=== PATIENT | male | born 1985 | race African-American/Black ===

== ENCOUNTER 2024-06-17 10:10 | Inpatient (IN) | payer BC ==
[~2024-06-17] VITALS: Ht 175.3 cm; Wt 76.2 kg
[2024-06-17 10:46] VITALS: O2SAT 99
[2024-06-17 11:27] LABS: CLARITY URINE CLEAR (CLEAR); COLOR URINE ORANGE (YELLOW); GLUCOSE URINE NEGATIVE (NEGATIVE); KETONES URINE TRACE (NEGATIVE); LEUKOCYTE ESTERASE URINE TRACE (NEGATIVE); NITRITE URINE NEGATIVE (NEGATIVE); OCCULT BLOOD URINE 3+ (NEGATIVE); PROTEIN URINE 1+ (NEGATIVE); SPECIFIC GRAVITY URINE 1.015 (1.005-1.030); UROBILINOGEN URINE 0.2 E.U./dL (0.2-1.0)
[2024-06-17 11:59] LABS: BASOPHILS % 0.2 % (0.0-2.0); HEMATOCRIT. 46.8 % (42.0-52.0); LYMPHOCYTES % 8.2 % (20.0-50.0); MEAN CORPUSCULAR HEMOGLOBIN 27.9 pg (28.0-32.0); MEAN CORPUSCULAR HGB CONC 31.9 g/dL (31.0-37.0); MEAN CORPUSCULAR VOLUME 87.4 fL (80.0-94.0); MEAN PLATELET VOLUME 7.8 fl (7.4-10.4); MONOCYTES % 4.6 % (2.0-8.0); PLATELET 371 x1000/uL (130-400); RED BLOOD CELL COUNT 5.35 mill/uL (4.7-6.1); RED CELL DISTRIBUTION WIDTH 14.9 % (11.6-14.6)
[2024-06-17 12:13] LABS: CHLORIDE 107 mEq/L (98-107); POTASSIUM 4.5 mEq/L (3.5-5.1); SODIUM 138 mEq/L (136-145)
[2024-06-17 12:14] LABS: CARBON DIOXIDE 25 mEq/L (21-32)
[2024-06-17 12:15] LABS: RBC URINE TNTC /hpf (0-2); SQUAMOUS EPITHELIAL CELL URINE RARE /lpf (RARE/1+)
[2024-06-17 12:15] LABS: CALCIUM 10.1 mg/dL (8.7-10.4)
[2024-06-17 12:16] LABS: BACTERIA URINE TRACE
[2024-06-17 12:17] LABS: MUCUS URINE TRACE /lpf (NONE/TRACE)
[2024-06-17 12:18] LABS: WBC URINE 0-2 /hpf (0-2)
[2024-06-17] MEDS ORDERED: KETOROLAC 30MG/ML VIAL IM STA (12:18)
[2024-06-17 12:19] LABS: CREATININE 0.8 mg/dL (0.6-1.3); GLUCOSE 98 mg/dL (70-105); UREA NITROGEN BLOOD 10 mg/dL (9-23)
[2024-06-17] MEDS ORDERED: GUAIFENESIN 200MG/10ML SUGAR FREE UDC PO PRN (14:00)
[2024-06-17] MEDS ORDERED: CLONIDINE 0.1MG TABLET PO PRN (14:00)
[2024-06-17] MEDS ORDERED: ONDANSETRON HCL 4MG/2ML INJ IV PRN (14:00)
[2024-06-17] MEDS ORDERED: LORAZEPAM 0.5MG TABLET PO PRN (14:00)
[2024-06-17] MEDS ORDERED: IPRATROPIUM/ALBUTEROL 0.5-3(2.5)MG/3ML NEB HHN PRN (14:00)
[2024-06-17] MEDS ORDERED: ACETAMINOPHEN 325MG TABLET PO PRN (14:00)
[2024-06-17] MEDS ORDERED: DOCUSATE SODIUM 100MG CAPSULE PO PRN (14:15)
[2024-06-17] MEDS: SODIUM CHLORIDE 0.9% 1,000 ML IV SCH (14:26)
[2024-06-17] MEDS ORDERED: NALOXONE HCL 0.4MG/ML VIAL IV PRN (14:30)
[2024-06-17] MEDS: MORPHINE SULFATE 2 MG/ML INJ (NOT FOR IM USE) IV PRN (14:33)
[2024-06-17] MEDS: KETOROLAC 30MG/ML VIAL IM NR (14:41)
[2024-06-17] MEDS: LEVOFLOXACIN 500MG PREMIX 100 ML IV NR (15:20)
[2024-06-17 16:00] VITALS: BP 124/73; PULSE 92; RESP 18; TEMP 36.5; O2SAT 97
[2024-06-17 16:12] LABS: CREATINE KINASE 66 IU/L (46-171)
[2024-06-17 17:08] VITALS: BP 124/73; PULSE 92; RESP 18; TEMP 36.5
[2024-06-17] MEDS: ACETAMINOPHEN 325MG TABLET PO PRN (18:51)
[2024-06-17 20:00] VITALS: BP 120/76; PULSE 96; RESP 17; TEMP 36.3; O2SAT 98
[2024-06-18] VITALS: BP 102/58; PULSE 97; RESP 17; TEMP 36.4; O2SAT 97
[2024-06-18 00:14] LABS: CREATINE KINASE 71 IU/L (46-171)
[2024-06-18 04:00] VITALS: BP 111/69; PULSE 98; RESP 17; TEMP 36.9; O2SAT 98
[2024-06-18 11:21] LABS: BASOPHILS % 0.7 % (0.0-2.0); MEAN CORPUSCULAR VOLUME 87.5 fL (80.0-94.0)
[2024-06-18 11:25] LABS: HEMATOCRIT. 43.3 % (42.0-52.0); HEMOGLOBIN. 14.2 g/dL (14.0-18.0); LYMPHOCYTES % 28.7 % (20.0-50.0); MEAN CORPUSCULAR HEMOGLOBIN 28.7 pg (28.0-32.0); MEAN CORPUSCULAR HGB CONC 32.8 g/dL (31.0-37.0); MEAN PLATELET VOLUME 8.3 fl (7.4-10.4); MONOCYTES % 7.2 % (2.0-8.0); NEUTROPHILS % 60.4 % (40.0-76.0); PLATELET 327 x1000/uL (130-400); RED BLOOD CELL COUNT 4.95 mill/uL (4.7-6.1); RED CELL DISTRIBUTION WIDTH 15.3 % (11.6-14.6); WHITE BLOOD COUNT 7.8 x1000/uL (4.5-11.0)
[2024-06-18 11:26] LABS: CHLORIDE 108 mEq/L (98-107); POTASSIUM 3.9 mEq/L (3.5-5.1); SODIUM 142 mEq/L (136-145)
[2024-06-18 11:27] LABS: CARBON DIOXIDE 24 mEq/L (21-32)
[2024-06-18 11:28] LABS: CALCIUM 9.6 mg/dL (8.7-10.4)
[2024-06-18 11:32] LABS: CREATININE 0.8 mg/dL (0.6-1.3); GLUCOSE 81 mg/dL (70-105); UREA NITROGEN BLOOD 12 mg/dL (9-23)
[2024-06-18] MEDS ORDERED: ESCI-7 PO (14:07)
[2024-06-18] MEDS ORDERED: MEDICATION NOT ON FORMULARY EA (Escitalopram Oxalate 1 TAB) PO SCH (14:15)
[2024-06-18] MEDS: CITALOPRAM HYDROBROMIDE 10MG TABLET PO SCH (14:34)
[2024-06-18] MEDS: TRAMADOL 50MG TABLET PO SCH (14:35)
[2024-06-18] MEDS: TAMSULOSIN HCL 0.4MG SR CAPSULE PO SCH (14:35)
[2024-06-18 16:00] VITALS: BP 115/67; PULSE 87; RESP 16; TEMP 36.6; O2SAT 98
[2024-06-18 20:00] VITALS: BP 111/71; PULSE 77; RESP 19; TEMP 36.5; O2SAT 96
[2024-06-18] MEDS: FAMOTIDINE 20MG TABLET PO SCH (22:57)
[2024-06-19] VITALS: BP 105/58; PULSE 71; RESP 17; TEMP 35.7; O2SAT 96
[2024-06-19 04:00] VITALS: BP 124/73; PULSE 92; RESP 18; TEMP 36.5; O2SAT 97
[2024-06-19 08:00] VITALS: BP 110/77; PULSE 70; RESP 18; TEMP 36.5; O2SAT 99
[2024-06-19 12:00] VITALS: BP 114/67; PULSE 70; RESP 16; TEMP 35.7; O2SAT 99
[2024-06-19 16:00] VITALS: BP 116/65; PULSE 75; RESP 18; TEMP 36.5; O2SAT 98
[2024-06-19 20:00] VITALS: BP 102/67; PULSE 72; RESP 18; TEMP 36.7; O2SAT 100
[2024-06-20] VITALS: BP 110/65; PULSE 70; RESP 19; TEMP 33.8; O2SAT 100
[2024-06-20 04:00] VITALS: BP 112/65; PULSE 86; RESP 20; TEMP 36.3; O2SAT 98
[2024-06-20 05:33] VITALS: BP 112/65; RESP 18
[2024-06-20 07:03] LABS: HEMATOCRIT 42.9 % (42.0-52.0); MEAN CORPUSCULAR HEMOGLOBIN 28.5 pg (28.0-32.0); MEAN CORPUSCULAR HGB CONC 32.6 g/dL (31.0-37.0); MEAN CORPUSCULAR VOLUME 87.4 fL (80.0-94.0); PLATELET 342 x1000/uL (130-400); RED CELL DISTRIBUTION WIDTH 14.6 % (11.6-14.6); WHITE BLOOD COUNT 7.4 x1000/uL (4.5-11.0)
[2024-06-20 07:13] LABS: CARBON DIOXIDE 26 mEq/L (21-32); CHLORIDE 107 mEq/L (98-107); POTASSIUM 4.1 mEq/L (3.5-5.1); SODIUM 142 mEq/L (136-145)
[2024-06-20 07:18] LABS: CREATININE 0.7 mg/dL (0.6-1.3)
[2024-06-20 07:19] LABS: GLUCOSE 97 mg/dL (70-105); UREA NITROGEN BLOOD < 5 mg/dL (9-23)
[2024-06-20 08:32] VITALS: PULSE 60
== END 2024-06-20 09:50 | disposition home or self-care (01) | DRG 694 ==
LOC: ER 10:10 → EDBEDREQTM 13:11 → EDBEDREQ 13:11 → 5WST 16:45 → 7EST 06-19 19:22
PROVIDERS: ADMIT Hospitalist; ATTEND Hospitalist
DX: N13.2 Hydronephrosis with renal and ureteral calculous obstruction (principal); N45.1 Epididymitis; D72.829 Elevated white blood cell count, unspecified; F17.290 Nicotine dependence, other tobacco product, uncomplicated; F32.A Depression, unspecified; F41.9 Anxiety disorder, unspecified; Z79.899 Other long term (current) drug therapy; Z90.49 Acquired absence of other specified parts of digestive tract; Z93.3 Colostomy status
CPT/HCPCS: 36415; 74176; 76870; 80048; 81003; 82550; 83605; 84145; 85025; 85027; 93976; 99285; A4606; J1885; J1956; J2270; J2405

== ENCOUNTER 2024-06-24 10:40 | Inpatient (IN) | payer BC ==
[~2024-06-24] VITALS: Ht 177.8 cm; Wt 79.8 kg
[~2024-06-24 10:40] MED LIST: ESCI-7 PO
[2024-06-24] MEDS: ONDANSETRON HCL 4MG/2ML INJ IV STA (10:52)
[2024-06-24] MEDS: MORPHINE SULFATE 4 MG/ML INJ (FOR IV/IM USE) IV STA (10:52)
[2024-06-24] MEDS: SODIUM CHLORIDE 0.9% 1,000 ML IV ONE (11:00)
[2024-06-24 11:29] LABS: BASOPHILS % 0.3 % (0.0-2.0); EOSINOPHILS % 0.1 % (0.0-5.0); HEMATOCRIT. 47.2 % (42.0-52.0); HEMOGLOBIN. 15.3 g/dL (14.0-18.0); LYMPHOCYTES % 7.6 % (20.0-50.0); MEAN CORPUSCULAR HGB CONC 32.4 g/dL (31.0-37.0); MEAN CORPUSCULAR VOLUME 86.3 fL (80.0-94.0); MEAN PLATELET VOLUME 8.1 fl (7.4-10.4); MONOCYTES % 5.8 % (2.0-8.0); NEUTROPHILS % 86.2 % (40.0-76.0); PLATELET 339 x1000/uL (130-400); RED BLOOD CELL COUNT 5.47 mill/uL (4.7-6.1); RED CELL DISTRIBUTION WIDTH 15.2 % (11.6-14.6); WHITE BLOOD COUNT 15.9 x1000/uL (4.5-11.0)
[2024-06-24 11:36] LABS: CHLORIDE 106 mEq/L (98-107); POTASSIUM 3.7 mEq/L (3.5-5.1); SODIUM 138 mEq/L (136-145)
[2024-06-24 11:37] LABS: CALCIUM 10.8 mg/dL (8.7-10.4); CARBON DIOXIDE 22 mEq/L (21-32)
[2024-06-24 11:41] LABS: INR 0.9
[2024-06-24 11:42] LABS: GLUCOSE 98 mg/dL (70-105); UREA NITROGEN BLOOD 13 mg/dL (9-23)
[2024-06-24 11:44] LABS: ALANINE AMINOTRANSFERASE 26 IU/L (10-49); ALBUMIN 4.8 g/dL (3.2-4.8); ASPARTATE AMINOTRANSFERASE 25 IU/L (<34); BILIRUBIN DIRECT 0.4 mg/dL (<=3.0); BILIRUBIN TOTAL 1.1 mg/dL (0.1-1.0)
[2024-06-24 11:45] LABS: PROTEIN TOTAL 7.8 g/dL (6.0-8.3)
[2024-06-24 11:54] LABS: CREATININE 1.3 mg/dL (0.6-1.3)
[2024-06-24] MEDS: MORPHINE SULFATE 4 MG/ML INJ (FOR IV/IM USE) IV ONE (12:54)
[2024-06-24 15:51] VITALS: BP 125/83; PULSE 58; RESP 18; TEMP 36.9
[2024-06-24 16:00] VITALS: BP 125/83; PULSE 60; RESP 18; TEMP 36.7; O2SAT 100
[2024-06-24] MEDS ORDERED: DIPHENHYDRAMINE 50MG/ML VIAL IV PRN (16:15)
[2024-06-24] MEDS ORDERED: ACETAMINOPHEN 325MG TABLET PO PRN (16:15)
[2024-06-24] MEDS ORDERED: CLONIDINE 0.1MG TABLET PO PRN (16:15)
[2024-06-24] MEDS ORDERED: NALOXONE HCL 0.4MG/ML VIAL IV PRN (16:30)
[2024-06-24] MEDS ORDERED: IBUPROFEN 600MG TABLET PO SCH (16:30)
[2024-06-24] MEDS: ONDANSETRON HCL 4MG/2ML INJ IV PRN (16:45)
[2024-06-24] MEDS: TAMSULOSIN HCL 0.4MG SR CAPSULE PO SCH (16:46)
[2024-06-24 20:00] VITALS: BP 121/75; RESP 18; TEMP 36.7; O2SAT 96
[2024-06-24] MEDS: SODIUM CHLORIDE 0.9% 1,000 ML IV SCH (20:40)
[2024-06-24] MEDS: FAMOTIDINE 20MG TABLET PO SCH (20:40)
[2024-06-24] MEDS: MORPHINE SULFATE 4 MG/ML INJ (FOR IV/IM USE) IV PRN (20:41)
[2024-06-24] MEDS: ACETAMINOPHEN 325MG TABLET PO PRN (21:44)
[2024-06-24] MEDS: SODIUM CHLORIDE 0.9% 3ML FLUSH IVF SCH (21:45)
[2024-06-25] MEDS: KETOROLAC 30MG/ML VIAL IV PRN (00:05)
[2024-06-25 04:00] VITALS: BP 103/58; PULSE 87; RESP 18; TEMP 36.4; O2SAT 95
[2024-06-25 08:00] VITALS: BP 104/66; PULSE 79; RESP 16; TEMP 35.6; O2SAT 99
[2024-06-25] MEDS: CITALOPRAM HYDROBROMIDE 10MG TABLET PO SCH (10:01)
[2024-06-25 12:00] VITALS: BP 102/57; PULSE 81; RESP 18; TEMP 36.4; O2SAT 98
[2024-06-25 16:00] VITALS: BP 113/66; PULSE 79; RESP 16; TEMP 36.1; O2SAT 99
[2024-06-25] MEDS: TRAMADOL 50MG TABLET PO PRN (17:08)
[2024-06-25] MEDS: KETOROLAC 30MG/ML VIAL IV SCH (21:48)
[2024-06-26 08:00] VITALS: BP 98/62; PULSE 64; RESP 18; TEMP 36.6; O2SAT 100
[2024-06-26 12:00] VITALS: BP 115/62; PULSE 77; RESP 16; TEMP 37.1; O2SAT 99
[2024-06-26] MEDS ORDERED: MORPHINE SULFATE 2 MG/ML INJ (NOT FOR IM USE) IV PRN (19:30)
[2024-06-26 20:00] VITALS: BP 116/65; PULSE 69; RESP 16; TEMP 36.3; O2SAT 99
[2024-06-26 20:36] VITALS: RESP 16
[2024-06-26 21:44] VITALS: BP 116/65; PULSE 69; TEMP 97.3; O2SAT 99
== END 2024-06-26 21:54 | disposition home or self-care (01) | DRG 694 ==
LOC: ER 10:40 → EDBEDREQ 13:55 → EDBEDREQTM 13:55 → 6EST 15:07
PROVIDERS: ADMIT Internal Medicine; ATTEND Internal Medicine
DX: N13.2 Hydronephrosis with renal and ureteral calculous obstruction (principal); F32.A Depression, unspecified; Z93.3 Colostomy status; Z87.442 Personal history of urinary calculi
CPT/HCPCS: 36415; 74176; 76770; 80048; 80076; 85025; 99285; J1885; J2270; J2405; J7030